=== PATIENT | female | born 1940 | race Caucasian/White ===

== ENCOUNTER 2019-09-20 19:49 | Emergency (ER) | payer OTHER ==
[2019-09-20 20:22] VITALS: BMI 26.4
--- NOTE | 2019-09-20 21:27 | PDOC ---
History of Present Illness - General Chief Complaint: Lightheaded Stated Complaint: Blood Pressure Problem Time Seen by Provider: 09/20/19 20:26 History Source: Patient, Family Exam Limitations: No Limitations - History of Present Illness Initial Comments: 09/20/19 21:22 79y F with PMH of HTN, HLD, Essential Tremor, Vertigo presenting to ED with complaints of dizziness and weakness since this AM at around 10. She was started on primodone 50mg and took the first dose today. Symptoms began 1 hour after taking the mediations. Pt states she felt nauseated and dizzy. Family states that they noted the tremors in her legs were worse and noticed a difference in her speech but patient denies speech changes. Denies vision changes, headache, numbness/tingling, vomiting, diarrhea, recent illnesses, chest pain, sob. She had a head CT done 2 weeks ago. PMD: Shea Neuro: Shakila PMH: see hpi PSH: none Meds: see med rec Allergies: ASA Social: 09/20/19 23:17 Past History - Past Medical History Allergies/Adverse Reactions: Allergies Allergy/AdvReac Type Severity Reaction Status Date / Time aspirin Allergy Verified 09/20/19 20:17 Home Medications: Ambulatory Orders Simvastatin [Zocor -] 40 mg PO HS 03/07/16 Valsartan/Hydrochlorothiazide [Valsartan-Hctz 160-12.5 mg Tab] 1 each PO DAILY 03/07/16 Folic Acid 1 mg PO DAILY 09/20/19 Methotrexate Sodium [Methotrexate] 2.5 mg PO WEEKLY 09/20/19 Primidone 50 mg PO DAILY 09/20/19 Rivaroxaban [Xarelto] 10 mg PO DAILY 09/20/19 HTN: Yes Hypercholesterolemia: Yes - Psycho Social/Smoking Cessation Hx Smoking History: Never smoked Hx Alcohol Use: No Drug/Substance Use Hx: No Review of Systems - Review of Systems Constitutional: Yes: See HPI HEENTM: No: Symptoms Reported Respiratory: No: Symptoms reported Cardiac (ROS): No: Symptoms Reported ABD/GI: Yes: See HPI : No: Symptoms Reported Musculoskeletal: No: Symptoms Reported Integumentary: No: Symptoms Reported Neurological: Yes: See HPI *Physical Exam - Vital Signs Last Vital Signs Temp Pulse Resp BP Pulse Ox 97.8 F 79 17 163/68 95 09/20/19 20:18 03/09/20 20:18 09/20/19 20:18 09/20/19 20:18 09/20/19 20:18 - Physical Exam General Appearance: Yes: Nourished, Appropriately Dressed. No: Apparent Distress HEENT: positive: EOMI, ALDEN, Normal ENT Inspection Neck: positive: Trachea midline, Supple. negative: Lymphadenopathy (R), Lymphadenopathy (L) Respiratory/Chest: positive: Lungs Clear, Normal Breath Sounds. negative: Crackles, Rales, Rhonchi, Stridor, Wheezing Cardiovascular: positive: Regular Rhythm, Regular Rate, S1, S2. negative: Edema, JVD, Murmur Vascular Pulses: Dorsalis-Pedis (R): 2+, Doralis-Pedis (L): 2+ Gastrointestinal/Abdominal: positive: Normal Bowel Sounds, Soft. negative: Tender Musculoskeletal: negative: CVA Tenderness, Decreased Range of Motion, Vertebral Tenderness Extremity: positive: Normal Capillary Refill. negative: Swelling Integumentary: positive: Normal Color, Dry, Warm Neurologic: positive: consumer electronics merchandiser II-XII NML intact, Fully Oriented, Alert, Normal Mood/Affect, Normal Response, Motor Strength 5/5, Finger to Nose, Other (lower extremity tremors). negative: Facial Droop, Numbness, Disoriented ED Treatment Course - LABORATORY CBC & Chemistry Diagram: 09/20/19 21:02 09/20/19 21:02 - RADIOLOGY Radiology Studies Ordered: Category Date Time Status HEAD CT WITHOUT CONTRAST [CT] Stat CT Scan 09/20/19 20:46 Ordered CHEST X-RAY PORTABLE* [RAD] Stat Radiology 09/20/19 20:26 Ordered Medical Decision Making - Medical Decision Making 09/21/19 07:42 79y F presenting with dizziness and tremors after taking new medication. vitals wnl ddx includes cva/tia v. medication adverse effect v. electrolyte abnormality v. acs labs including trop ct head, cxr, ekg ekg negative for ischemic changes. labs wnl head ct with no acute pathology. ataxic gait likely due to underlying tremors. pt given iv fluids. spoke to neurologist; states pt can dc meds, can take mecliziine for dizziness f/u in office. pt does not want to take meclizine right now because it makes her drowsy. llabs including rpt trop negative. negative ua. will dc home. provided return precautions Discharge - Discharge Information Problems reviewed: Yes Clinical Impression/Diagnosis: Weakness, Dizziness Condition: Good Disposition: HOME - Admission No - Follow up/Referral Referrals: Tunde Valdivia MD [Primary Care Provider] - Juancho Jhaveri MD [Staff Physician] - - Patient Discharge Instructions Additional Instructions: Your symptoms could be due to the medication you took. I spoke to your neurologist and he recommended that you stop taking the medicine. Please follow up with him in office. Keep yourself well hydrated. Take meclizine for the dizziness. Come back to the ER if the tremors get worse, you continue to have vertigo or if any new or concerning symptom develops. Thank you - Post Discharge Activity
[2019-09-20 21:28] LABS: BASO % 0.3 % (0-2.0); EOS % 0.1 % (0-4.5); HEMATOCRIT 38.9 % (32.4-45.2); LYMPH % 13.9 % (8-40); MCH 30.9 pg (25.7-33.7); MCHC 33.3 g/dl (32.0-36.0); MEAN CELL VOLUME 92.8 fl (80-96); MEAN PLT VOLUME 8.7 fl (7.5-11.1); MONO % 4.9 % (3.8-10.2); NEUT % 80.8 % (42.8-82.8); PLATELET COUNT 338 K/MM3 (134-434); RBC 4.19 M/mm3 (3.60-5.2); RDW 16.7 % (11.6-15.6); WHITE BLOOD COUNT 8.5 K/mm3 (4.0-10.0)
[2019-09-20 21:47] LABS: INR 1.12 (0.83-1.09); PROTHROMBIN TIME (PATIENT) 13.2 SEC (9.7-13.0)
[2019-09-20 22:04] LABS: ALBUMIN 3.8 g/dl (3.4-5.0); BILIRUBIN,TOTAL 0.4 mg/dL (0.2-1); BLOOD UREA NITROGEN 15.5 mg/dL (7-18); CALCIUM 8.8 mg/dL (8.5-10.1); CREATININE 0.7 mg/dL (0.55-1.3); POTASSIUM 3.5 mmol/L (3.5-5.1); TOT PROT 7.1 g/dl (6.4-8.2)
[2019-09-20] MEDS ORDERED: SODIUM CHLORIDE 500 ML IV STA (22:12)
--- NOTE | 2019-09-20 23:17 | PDOC ---
Documentation entered by Arik Ceja SCRIBE, acting as scribe for Nannette Haro MD. Nannette Haro MD: This documentation has been prepared by the Darryn walter Xhesika, SCRIBE, under my direction and personally reviewed by me in its entirety. I confirm that the documentation accurately reflects all work, treatment, procedures, and medical decision making performed by me. Attending Attestation - Resident Resident Name: Meryl Dow - ED Attending Attestation I have performed the following: I have examined & evaluated the patient, The case was reviewed & discussed with the resident, I agree w/resident's findings & plan, Exceptions are as noted - HPI HPI: 09/20/19 23:09 Petite 79-year-old female with a history of central tremor started a new medication today. Her neurologist Dr. Jhaveri had her start on a medicine to help with her tremors. However after she took her medication she found that all day she has had increasing dizziness and this combined with her chronic tremors had made it very difficult to walk. - Physicial Exam PE: 09/20/19 23:10 79-year-old female complaining of dizziness and weakness Head normocephalic atraumatic Eyes no nystagmus appreciated Lungs are clear to auscultation bilaterally CVS regular rate rhythm S1-S2 Abdomen soft, not tender Extremities no pitting edema Neuro alert, conversant, central tremor - Medical Decision Making 09/20/19 23:16 CAT scan of the head showed volume loss but no acute intracranial pathology Chest x-ray shows clear lungs She has a normal CBC Her chemistries reviewed and her glucose is 116 otherwise all her lab values are within normal limits 09/21/19 01:43 pt received meclizine and IVF and felt better d/c home
[2019-09-21 00:44] LABS: URINE APPEARANCE Clear; URINE BILIRUBIN Negative (NEGATIVE); URINE COLOR Yellow; URINE GLUCOSE (UA) Negative (NEGATIVE); URINE KETONE Negative (NEGATIVE); URINE LEUK ESTERASE Negative (NEGATIVE); URINE NITRITE Negative (NEGATIVE); URINE PROTEIN Negative (NEGATIVE); URINE UROBILINOGEN 0.2 mg/dL (0.2-1.0)
[2019-09-21 01:25] VITALS: BP 157/79; PULSE 91; TEMP 97.2
--- NOTE | 2019-09-21 11:00 | EKG ---
Test Reason : Blood Pressure : / mmHG Vent. Rate : 076 BPM Atrial Rate : 076 BPM P-R Int : 174 ms QRS Dur : 090 ms QT Int : 420 ms P-R-T Axes : 025 015 006 degrees QTc Int : 472 ms NORMAL SINUS RHYTHM LOW VOLTAGE QRS SEPTAL INFARCT , AGE UNDETERMINED ABNORMAL ECG WHEN COMPARED WITH ECG OF 05-NOV-2008 11:10, SEPTAL INFARCT IS NOW PRESENT Confirmed by Zev Iyer MD ([id number]) on 09/21/2019 11:00:22 AM Referred By: Confirmed By:Zev Iyer MD
== END 2019-09-21 01:35 | disposition home or self-care (01) ==
LOC: JER 19:49
DX: R42 Dizziness and giddiness (principal); R53.1 Weakness; R26.0 Ataxic gait; G25.2 Other specified forms of tremor; I10 Essential (primary) hypertension; E78.5 Hyperlipidemia, unspecified
CPT/HCPCS: 36415; 70450-TC; 71045-TC-FY; 80053; 81003; 84484; 85025; 85610; 87086; 87186; 93005; 93010; 99285-25; J7030